=== PATIENT | female | born 1945 | race Caucasian/White ===

== ENCOUNTER 2023-06-30 10:27 | Emergency (ER) | payer OTHER ==
[~2023-06-30] VITALS: Ht 170.2 cm; Wt 100.0 kg
[2023-06-30] MEDS ORDERED: oxymetazoline 15 ML nasal spray NS ONE (10:35)
[2023-06-30] MEDS ORDERED: LIDOcaine 1% W/epiNEPHrine 1:100,000 20ml vial SQ ONE (10:35)
[2023-06-30 10:39] VITALS: BP 106/92; PULSE 84; O2SAT 96
[2023-06-30] MEDS ORDERED: LIDOCAINE 1%/EPI 1:100,000 inj. 10 ML multi-dose vial SQ ONE (10:55)
[2023-06-30] MEDS ORDERED: LIDOcaine 4% (40 mg/ml) topical solution 50ml TP ONE (10:55)
[2023-06-30] MEDS ORDERED: phenylephrine 1% (X-tra strg) 15ml nasal spray NS ONE (11:00)
[2023-06-30 11:21] VITALS: RESP 18
[2023-06-30 12:03] VITALS: TEMP 96.6
== END 2023-06-30 12:06 | disposition home or self-care (01) ==
LOC: ER 10:27
DX: R04.0 Epistaxis (principal); I48.91 Unspecified atrial fibrillation
CPT/HCPCS: 30901; 99284

== ENCOUNTER 2023-07-02 11:30 | Emergency (ER) | payer OTHER ==
[~2023-07-02] VITALS: Ht 170.2 cm; Wt 99.7 kg
[2023-07-02 11:30] VITALS: BP 169/108; PULSE 119; RESP 16; TEMP 98; O2SAT 96
== END 2023-07-02 12:57 | disposition home or self-care (01) ==
LOC: ER 11:30
DX: R04.0 Epistaxis (principal)
CPT/HCPCS: 99281